=== PATIENT | female | born 1940 | race Caucasian/White ===

== ENCOUNTER 2021-12-25 07:59 | Emergency (ER) | payer MEDICARE ==
[~2021-12-25] VITALS: Ht 162.6 cm; Wt 52.7 kg
[~2021-12-25 07:59] MED LIST: BENA10TA74 PO; ESTR1PAT77; LEVO100T46 PO; PROG100C3 PO; actonel PO
[2021-12-25] MEDS ORDERED: aspirin 81mg tab.chew PO ONE (08:15)
[2021-12-25 08:38] LABS: BASOPHILS # (AUTO) 0.1 X10'3 (0-0.2); BASOPHILS % (AUTO) 0.9 % (0-1); EOSINOPHILS # (AUTO) 0.5 X10'3 (0-0.9); EOSINOPHILS % (AUTO) 5.5 % (0-6); HEMATOCRIT 48.2 % (35.0-45.0); HEMOGLOBIN 15.8 g/dl (12.0-16.0); LYMPHOCYTES # (AUTO) 2.1 X10'3 (1.1-4.8); LYMPHOCYTES % (AUTO) 24.7 % (21-51); MEAN CORPUSCULAR HEMOGLOBIN 31.4 PG (27.0-31.0); MEAN CORPUSCULAR HGB CONC 32.9 g/dL (33.0-36.5); MEAN CORPUSCULAR VOLUME 95.5 FL (78-98); MEAN PLATELET VOLUME 10.7 FL (7.4-10.4); MONOCYTES # (AUTO) 0.6 X10'3 (0-0.9); MONOCYTES % (AUTO) 6.7 % (2-12); NEUTROPHILS # (AUTO) 5.4 X10'3 (1.8-7.7); NEUTROPHILS % (AUTO) 62.2 % (42-75); PLATELET COUNT 209 X10'3 (140-440); RED BLOOD COUNT 5.05 X10'6 (4.20-5.60); RED CELL DISTRIBUTION WIDTH 14.8 % (11.5-14.5); WHITE BLOOD COUNT 8.7 X10'3 (4.5-11.0)
[2021-12-25 09:02] LABS: ALANINE AMINOTRANSFERASE 20 U/L (12-78); ALBUMIN 4.3 G/DL (3.4-5.0); ALBUMIN/GLOBULIN RATIO 1.2 (1.1-1.5); ALKALINE PHOSPHATASE 77 IU/L (46-116); ANION GAP 8 (8-16); BILIRUBIN,TOTAL 0.6 MG/DL (0.1-1.0); BLOOD UREA NITROGEN 9 MG/DL (7-18); BUN/CREATININE RATIO 8.7 (6.6-38.0); CALCIUM 9.3 MG/DL (8.5-10.1); CHLORIDE 104 MMOL/L (99-107); CREATININE 1.03 MG/DL (0.40-0.90); GLUCOSE 102 MG/DL (70-104); SODIUM 140 MMOL/L (135-145); TOTAL CARBON DIOXIDE 28.4 MMOL/L (24-32); eGFR 51 ML/MIN
[2021-12-25 09:10] LABS: MAGNESIUM 2.3 MG/DL (1.5-2.4)
[2021-12-25 09:14] LABS: ASPARTATE AMINO TRANSFERASE 34 U/L (10-37); POTASSIUM 4.7 MMOL/L (3.5-5.1)
[2021-12-25] MEDS ORDERED: IOHEXOL 350 MG/ML INFUS..BTL 125ML IV ONE (09:24)
--- NOTE | 2021-12-25 09:33 | NUR ---
TO CT VIA [facility].
[2021-12-25 09:40] LABS: LARGE PLATELETS FEW; PLATELET ESTIMATE NORMAL
--- NOTE | 2021-12-25 09:41 | NUR ---
back from CT at this time.
[2021-12-25] MEDS ORDERED: ipratropium/albuterol 3ml nebule NEB ONE (11:00)
[2021-12-25] MEDS ORDERED: ALBU8.5H17 INH (11:01)
--- NOTE | 2021-12-25 11:14 | NUR ---
RT at bedside.
[2021-12-25 11:37] VITALS: BP 128/68
== END 2021-12-25 11:45 | disposition home or self-care (01) ==
LOC: ER 07:59
DX: R07.89 Other chest pain (principal); J44.9 Chronic obstructive pulmonary disease, unspecified; R06.02 Shortness of breath; Z72.0 Tobacco use; Z98.890 Other specified postprocedural states; Z79.899 Other long term (current) drug therapy
CPT/HCPCS: 36415; 71045; 71275; 74174; 80053; 83735; 83880; 84484; 85008; 85025; 93005; 94640; 99285; Q9967; 94760